=== PATIENT | male | born 1975 | race Caucasian/White ===

== ENCOUNTER 2016-10-05 23:44 | Emergency (ER) | payer OTHER ==
[~2016-10-05 23:44] MED LIST: ACYCLOVIR400 MG PO; ATARAX PO; BACTRIM DS TABL1 TA1 PO; CLINDAMYCIN HC300 MG PO; DIAZEPAM PO; ERYTHROMYC3.5 GM OPT OD; HIBICLENS 4% L120 ML TOP; IBUPROFEN800 MG PO; KEFLEX PO; KEFLEX500 M1 PO; LORTAB 10-5001 EACH PO; LORTAB 10/500 T1 TAB PO; NO MEDICATIONS; ORUDIS75 M1 PO; PHENERGAN25 MG PO; TYLENOL #3 PO
== END 2016-10-06 01:36 | disposition home or self-care (01) ==
LOC: CED 23:44
DX: T24.102A Burn of first degree of unspecified site of left lower limb, except ankle and foot, initial encounter (principal); L03.116 Cellulitis of left lower limb; X13.1XXA Other contact with steam and other hot vapors, initial encounter; Y92.69 Other specified industrial and construction area as the place of occurrence of the external cause; Y99.0 Civilian activity done for income or pay
CPT/HCPCS: 16000; 99283